=== PATIENT | male | born 1990 | race African-American/Black ===

== ENCOUNTER 2018-03-05 03:46 | Emergency (ER) | payer OTHER ==
[~2018-03-05] VITALS: Ht 190.5 cm; Wt 137.4 kg
--- OUTSIDE RECORDS SUMMARY | 2018-03-05 03:54 | XMS REPORT ---
Author Author CASSIE Gallo [facility] Address Unknown Care Team Providers Care Progressive Die Maker Name Role Phone CASSIE Gallo Unavailable PROBLEMS Unknown Problems ALLERGIES Substance Reaction Event Type Date Status N.K.D.A. Unknown Non Drug Allergy Jun, Unknown SOCIAL HISTORY No smoking Hx information available PLAN OF CARE Activity Details Follow Up prn Reason:samuel/hygiene VITAL SIGNS Blood pressure systolic 142 mmHg 2016-06-15 Blood pressure diastolic 96 mmHg 2016-06-15 MEDICATIONS No Known Medications RESULTS No Results PROCEDURES Procedure Date Ordered Related Diagnosis Body Site LTD ORAL EVALUATION - PROBLEM FOCUS Jun 15, 2016 INTRAORL-PERIAPICAL 1 FILM [id number] Jun 15, 2016 IMMUNIZATIONS No Known Immunizations
[2018-03-05] MEDS ORDERED: MOME15CR17 TP (04:01)
--- NOTE | 2018-03-05 04:01 | ED Integumentary General ---
General Chief Complaint: Skin/Wound Problems Stated Complaint: POISON FÁTIMA Source: patient (LIMITED HISTORIAN--DOES NOT KNOW ANY OF HIS MEDICATIONS OR WHAT HE TAKES THEM FOR) History of Present Illness Date Seen by Provider: Mar 05, 2018 Time Seen by Provider: 03:52 Initial Comments PT ARRIVES VIA POV PT IS HERE WITH 41 Y.O.GIRLFRIEND WITH SAME COMPLAINT-BOTH ARE BEING SEEN IN ER THEY WENT TO [facility] AT 2230 TONIGHT, THEN LWBS AND CAME HERE C/O ITCHY "RASH" "EVERYWHERE" FOR 2 DAYS--LEFT CHEST, RIGHT WRIST, TOP OF HEAD, MEDIAL ASPECT OF RIGHT ANKLE WAS WORKING IN [employer] 2 DAYS AGO HAD POISON FÁTIMA A YEAR AGO. TOOK 1 BENADRYL AT 0900 YESTERDAY AM WITHOUT RELIEF. PT STATES "CAN'T REALLY SEE IT" GIRLFRIEND THINKS IT'S POISON FÁTIMA. Allergies and Home Medications Home Medications Mometasone Furoate 15 Gm Cream..g., 0 TP TID Prescribed by: LIZZ BROCK on 03/05/18 0401 Patient Home Medication List Home Medication List Reviewed: Yes Constitutional: no symptoms reported EENTM: no symptoms reported Respiratory: no symptoms reported Cardiovascular: no symptoms reported Gastrointestinal: no symptoms reported Genitourinary: no symptoms reported Musculoskeletal: no symptoms reported Skin: no symptoms reported Psychiatric/Neurological: No Symptoms Reported Endocrine: No Symptoms Reported Past Pdfvklz-Jvymya-Orfmoi Hx Patient Social History Alcohol Use: Past History ("USED TO BE AN ALCOHOLIC" STATES HE DRANK "WAY TOO MUCH" BUT CANNOT STATE HOW MUCH. LAST ETOH 10/2011, PER PT ON 03/05/18) Recreational Drug Use: No (DENIES) Smoking Status: Current Everyday Smoker (1/2 PPD) Type Used: Cigarettes Recent Foreign Travel: No Contact w/Someone Who Travel: No Past Medical History Surgeries: Yes Tonsillectomy Respiratory: No Cardiac: Yes High Cholesterol, Hypertension Physical Exam Vital Signs Vital Signs - First Documented 03/05/18 03:52 Temp 97.2 Pulse 74 Resp 20 B/P (MAP) 163/111 (128) Pulse Ox 98 O2 Delivery Room Air Capillary Refill : General Appearance: WD/WN, no apparent distress HEENT: PERRL/EOMI Neck: normal inspection Cardiovascular: regular rate, rhythm, no murmur Respiratory: normal breath sounds Gastrointestinal: soft Back: normal inspection Extremities: normal inspection, no pedal edema, normal capillary refill Neurologic/Psychiatric: 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 2 TINY ERYTHEMATOUS PAPULES TO LEFT LATERAL CHEST, NO OTHER RASH NOTED. OTHER AREAS OF ITCHING DO NOT REVEAL ANY RASH. ) Progress/Results/Core Measures Results/Orders Vital Signs/I&O 03/05/18 03:52 Temp 97.2 Pulse 74 Resp 20 B/P (MAP) 163/111 (128) Pulse Ox 98 O2 Delivery Room Air Departure Impression Primary Impression: Pruritus Additional Impression: possible insect bites Disposition: 01 HOME, SELF-CARE Condition: Stable Departure-Patient Inst. Referrals: NO,LOCAL PHYSICIAN (PCP/Family) Primary Care Physician Patient Instructions: Insect Bites and Stings (DC) Add. Discharge Instructions: TAKE CLARITIN 10 MG IN MORNING, BENADRYL 50 MG AT NIGHT FOR ITCHING [facility] IF NO BETTER All discharge instructions reviewed with patient and/or family. Voiced understanding. Scripts Mometasone Furoate (Elocon) 15 Gm Cream..g. 0 TP TID, #1 TUBE Prov: LIZZ BROCK DO 03/05/18 LIZZ BROCK DO Mar 05, 2018 04:01
[2018-03-05 04:07] VITALS: BP 163/111
== END 2018-03-05 04:07 | disposition home or self-care (01) ==
LOC: EDUNIT# 03:46 → ER 03:51
DX: L29.9 Pruritus, unspecified (principal); E78.00 Pure hypercholesterolemia, unspecified; I10 Essential (primary) hypertension; F17.210 Nicotine dependence, cigarettes, uncomplicated; Z79.51 Long term (current) use of inhaled steroids; Z90.89 Acquired absence of other organs
CPT/HCPCS: 99282